=== PATIENT | male | born 1950 | race Caucasian/White ===

== ENCOUNTER 2023-08-27 06:02 | Inpatient (IN) ==
[2023-08-27] MEDS ORDERED: IPRATROPIUM/ALBUTEROL 3 ML AMPUL.NEB NEB ONE ×2 (06:12→07:12)
[2023-08-27] MEDS ORDERED: methylPREDNISolone SOD SUCC 125 MG/2 ML VIAL IV ONE ×2 (06:12→20:56)
[2023-08-27] MEDS ORDERED: ACETAMINOPHEN 325 MG TABLET PO ONE ×2 (06:12→18:52)
[2023-08-27 06:47] LABS: Basophils # (Auto) 0.02 K/mcL (0.00-0.30); Basophils % (Auto) 0.2 % (0.0-2.0); Eosinophils # (Auto) 0.03 K/mcL (0.00-0.70); Eosinophils % (Auto) 0.2 % (0.0-7.0); Hematocrit 40.9 % (40.1-51.0); Hemoglobin 13.8 g/dL (13.7-17.5); Lymphocytes # (Auto) 2.01 K/mcL (1.50-4.80); Lymphocytes % (Auto) 15.1 % (15.5-49.0); Mean Cell Volume 100.7 fL (80.0-100.0); Mean Corpuscular HGB Conc 33.7 g/dL (31.0-36.0); Mean Platelet Volume 9.4 fL (8.8-12.5); Monocytes # (Auto) 0.74 K/mcL (0.10-0.90); Monocytes % (Auto) 5.6 % (1.0-12.0); Neutrophils % (Auto) 78.7 % (38.0-78.0); Platelet Count 279 K/mcL (140-440); RBC 4.06 M/mcL (4.63-6.08); Red Cell Distribution Width 11.7 % (11.5-14.5); WBC 13.3 K/mcL (4.5-11.0)
[2023-08-27] MEDS ORDERED: cefTRIAXone 1 GM VIAL IV ONE (07:13)
[2023-08-27] MEDS ORDERED: DOXYCYCLINE HYCLATE 100 MG TABLET.ORL PO ONE (07:13)
[2023-08-27 07:14] LABS: ALT/SGPT 12 U/L (<40); AST/SGOT 31 U/L (<40); Albumin/Globulin Ratio 1.4 (1.0-2.3); Alkaline Phosphatase 93 U/L (39-117); Bilirubin,Total 0.4 mg/dL (0.1-1.0); Blood Urea Nitrogen 19 mg/dL (8-23); Calcium 9.4 mg/dL (8.6-10.4); Carbon Dioxide 27 mmol/L (22-30); Chloride 92 mmol/L (96-108); Globulin 2.8 gm/dL (2.2-3.7); Glomerular Filtration Rate 74; Glucose 157 mg/dL (70-105)
[2023-08-27] MEDS ORDERED: REMDESIVIR 200 MG in 0.9 % SODIUM CHLORIDE 250 ML IV ONE (13:32)
[2023-08-27 14:10] LABS: C-Reactive Protein 3.45 mg/dL (0.03-0.80)
[2023-08-27] MEDS ORDERED: IPRATROPIUM/ALBUTEROL 3 ML AMPUL.NEB NEB PRN ×2 (20:48→21:33)
[2023-08-27] MEDS ORDERED: 0.9 % SODIUM CHLORIDE 1,000 ML IV SCH (21:00)
[2023-08-27] MEDS ORDERED: SENNOSIDES 1 TABLET PO PRN (21:33)
[2023-08-27] MEDS ORDERED: POLYETHYLENE GLYCOL 3350 17 GM PACKET PO PRN (21:33)
[2023-08-27] MEDS ORDERED: ONDANSETRON 4 MG/2 ML VIAL IV PRN (21:33)
[2023-08-27] MEDS ORDERED: REMDESIVIR 100 MG in 0.9 % SODIUM CHLORIDE 250 ML IV SCH (21:33)
[2023-08-27] MEDS ORDERED: POTASSIUM CHLORIDE 20 MEQ TABLET PO PRN ×2 (21:33)
[2023-08-27] MEDS ORDERED: MAGNESIUM SULFATE 2 GM/50 ML BAG IV PRN (21:33)
[2023-08-27] MEDS ORDERED: ENALAPRILAT 1.25 MG/ML VIAL IV PRN (21:33)
[2023-08-27] MEDS ORDERED: cefTRIAXone 1 GM VIAL IV SCH (21:33)
[2023-08-27] MEDS ORDERED: POTASSIUM CHLORIDE 40 MEQ in DEXTROSE 5% IN WATER 500 ML IV PRN (21:33)
[2023-08-27] MEDS ORDERED: ACETAMINOPHEN 325 MG TABLET PO PRN (21:33)
[2023-08-27] MEDS: IPRATROPIUM/ALBUTEROL 3 ML AMPUL.NEB NEB SCH (22:32)
[2023-08-27] MEDS: methylPREDNISolone SOD SUCC 125 MG/2 ML VIAL IV SCH ×2 (22:32→23:34)
[2023-08-27] MEDS: BUDESONIDE 0.5 MG/2 ML AMPUL.NEB NEB SCH (22:32)
[2023-08-27] MEDS ORDERED: methylPREDNISolone SOD SUCC 125 MG/2 ML VIAL ONE (22:49)
[2023-08-27] MEDS ORDERED: cefTRIAXone 1 GM VIAL ONE (23:13)
[2023-08-27] MEDS: AZITHROMYCIN 500 MG in DEXTROSE 5% IN WATER 250 ML IV SCH (23:36)
[2023-08-27] MEDS: DOCUSATE SODIUM 100 MG CAPSULE PO SCH (23:56)
[2023-08-28] MEDS ORDERED: methylPREDNISolone SOD SUCC 125 MG/2 ML VIAL ONE (05:00)
[2023-08-28] MEDS: methylPREDNISolone SOD SUCC 125 MG/2 ML VIAL IV SCH ×3 (05:04→22:36)
[2023-08-28 06:11] LABS: ALT/SGPT 9 U/L (<40); AST/SGOT 29 U/L (<40); Albumin 3.4 gm/dL (3.2-5.2); Albumin/Globulin Ratio 1.3 (1.0-2.3); Alkaline Phosphatase 71 U/L (39-117); Bilirubin,Direct < 0.2 mg/dL (0-0.3); Bilirubin,Total 0.4 mg/dL (0.1-1.0); Blood Urea Nitrogen 18 mg/dL (8-23); Calcium 9.5 mg/dL (8.6-10.4); Carbon Dioxide 25 mmol/L (22-30); Chloride 93 mmol/L (96-108); Globulin 2.7 gm/dL (2.2-3.7); Glomerular Filtration Rate 84; Glucose 138 mg/dL (70-105); Lactate Dehydrogenase 211 U/L (135-225); Phosphorous 3.2 mg/dL (2.5-4.5); Triglycerides 32 mg/dL (<150); Uric Acid 5.9 mg/dL (2.5-8.0)
[2023-08-28 06:13] LABS: Basophils # (Auto) 0.01 K/mcL (0.00-0.30); Basophils % (Auto) 0.1 % (0.0-2.0); Eosinophils # (Auto) 0 K/mcL (0.00-0.70); Eosinophils % (Auto) 0 % (0.0-7.0); Hematocrit 34.8 % (40.1-51.0); Hemoglobin 11.8 g/dL (13.7-17.5); Lymphocytes # (Auto) 0.59 K/mcL (1.50-4.80); Lymphocytes % (Auto) 3.8 % (15.5-49.0); Mean Cell Volume 102.1 fL (80.0-100.0); Mean Corpuscular HGB Conc 33.9 g/dL (31.0-36.0); Mean Platelet Volume 9.4 fL (8.8-12.5); Monocytes # (Auto) 0.22 K/mcL (0.10-0.90); Monocytes % (Auto) 1.4 % (1.0-12.0); Neutrophils % (Auto) 94.4 % (38.0-78.0); Platelet Count 200 K/mcL (140-440); RBC 3.41 M/mcL (4.63-6.08); Red Cell Distribution Width 11.7 % (11.5-14.5); WBC 15.6 K/mcL (4.5-11.0)
[2023-08-28] MEDS: IPRATROPIUM/ALBUTEROL 3 ML AMPUL.NEB NEB SCH ×2 (07:59→20:59)
[2023-08-28] MEDS: BUDESONIDE 0.5 MG/2 ML AMPUL.NEB NEB SCH (07:59)
[2023-08-28] MEDS ORDERED: 0.9 % SODIUM CHLORIDE 500 ML IV ONE (08:28)
[2023-08-28] MEDS ORDERED: ENOXAPARIN 40 MG/0.4 ML SYRINGE SQ SCH (09:00)
[2023-08-28] MEDS ORDERED: LISINOPRIL 2.5 MG TABLET PO SCH (09:00)
[2023-08-28] MEDS ORDERED: FUROSEMIDE 40 MG TABLET PO SCH (09:00)
[2023-08-28] MEDS ORDERED: METOPROLOL SUCCINATE 25 MG TAB.XL.24H PO SCH (09:00)
[2023-08-28 09:09] LABS: Thyroid Stimulating Hormone 0.48 uIU/mL (0.27-5.01)
[2023-08-28] MEDS: cefTRIAXone 1 GM VIAL IV SCH (09:09)
[2023-08-28] MEDS: THYROID, PORK 60 MG TABLET PO SCH (09:09)
[2023-08-28] MEDS: DOCUSATE SODIUM 100 MG CAPSULE PO SCH ×2 (09:10→21:12)
[2023-08-28 09:32] LABS: Osmolality,Urine 324 mOSM/kg (80-1000); Sodium, Urine Random 10 mmol/L
[2023-08-28] MEDS: SODIUM CHLORIDE 1 GM TABLET PO SCH ×3 (09:52→21:00)
[2023-08-28] MEDS ORDERED: 0.9 % SODIUM CHLORIDE 1,000 ML IV ONE (09:52)
[2023-08-28] MEDS: AZITHROMYCIN 500 MG in DEXTROSE 5% IN WATER 250 ML IV SCH (13:32)
[2023-08-28] MEDS ORDERED: METOPROLOL TARTRATE 5 MG/5 ML VIAL IV ONE ×2 (14:41→17:30)
[2023-08-28] MEDS: METOPROLOL TARTRATE 5 MG/5 ML VIAL IV PRN (15:49)
[2023-08-28] MEDS ORDERED: ENOXAPARIN 40 MG/0.4 ML SYRINGE SQ ONE (16:09)
[2023-08-28] MEDS ORDERED: DILTIAZEM 125 MG in DEXTROSE 5% IN WATER 100 ML IV PRN (17:25)
[2023-08-28] MEDS: METOPROLOL TARTRATE 25 MG TABLET PO SCH (21:00)
[2023-08-28] MEDS: [UNRECOGNIZED DRUG - OTHER] INH SCH (21:00)
[2023-08-29] MEDS: methylPREDNISolone SOD SUCC 125 MG/2 ML VIAL IV SCH (05:48)
[2023-08-29 06:11] LABS: C-Reactive Protein 4.16 mg/dL (0.03-0.80)
[2023-08-29 06:16] LABS: Blood Urea Nitrogen 24 mg/dL (8-23); Calcium 9.6 mg/dL (8.6-10.4); Carbon Dioxide 24 mmol/L (22-30); Chloride 92 mmol/L (96-108); Glomerular Filtration Rate 84; Glucose 127 mg/dL (70-105)
[2023-08-29] MEDS: THYROID, PORK 60 MG TABLET PO SCH (07:35)
[2023-08-29] MEDS: IPRATROPIUM/ALBUTEROL 3 ML AMPUL.NEB NEB SCH (07:51)
[2023-08-29] MEDS ORDERED: ENOXAPARIN 80 MG/0.8 ML SYRINGE SQ ONE (07:58)
[2023-08-29] MEDS ORDERED: 0.9 % SODIUM CHLORIDE 500 ML IV ONE (07:58)
[2023-08-29] MEDS: METOPROLOL TARTRATE 25 MG TABLET PO SCH ×2 (08:25→20:57)
[2023-08-29] MEDS: cefTRIAXone 1 GM VIAL IV SCH (08:25)
[2023-08-29] MEDS: SODIUM CHLORIDE 1 GM TABLET PO SCH ×3 (08:25→20:58)
[2023-08-29] MEDS: DOCUSATE SODIUM 100 MG CAPSULE PO SCH (08:27)
[2023-08-29] MEDS ORDERED: fentaNYL 100 MCG/2 ML VIAL IV ONE (12:04)
[2023-08-29] MEDS: MIDAZOLAM 2 MG/2 ML VIAL IV SCH ×2 (13:04→13:34)
[2023-08-29] MEDS ORDERED: FUROSEMIDE 40 MG/4 ML VIAL IV ONE (13:15)
[2023-08-29] MEDS ORDERED: LOPERAMIDE 2 MG CAPSULE PO ONE (14:14)
[2023-08-29] MEDS ORDERED: LOPERAMIDE 2 MG CAPSULE PO PRN (14:14)
[2023-08-29] MEDS: AZITHROMYCIN 500 MG in DEXTROSE 5% IN WATER 250 ML IV SCH (14:32)
[2023-08-29] MEDS ORDERED: KETOCONAZOLE 200 MG TABLET PO ONE (16:03)
[2023-08-29] MEDS: [UNRECOGNIZED DRUG - OTHER] INH SCH (20:46)
[2023-08-29] MEDS: LACTOBACILLUS 1 CAPSULE PO SCH (20:58)
[2023-08-29] MEDS: ENOXAPARIN 60 MG/0.6 ML SYRINGE SQ SCH (20:58)
[2023-08-29] MEDS ORDERED: methylPREDNISolone SOD SUCC 125 MG/2 ML VIAL IV SCH (21:00)
[2023-08-30] MEDS: METOPROLOL TARTRATE 5 MG/5 ML VIAL IV PRN (04:10)
[2023-08-30 06:11] LABS: Basophils # (Auto) 0.01 K/mcL (0.00-0.30); Basophils % (Auto) 0.1 % (0.0-2.0); Eosinophils # (Auto) 0 K/mcL (0.00-0.70); Eosinophils % (Auto) 0 % (0.0-7.0); Hematocrit 36.3 % (40.1-51.0); Hemoglobin 12.3 g/dL (13.7-17.5); Lymphocytes # (Auto) 0.69 K/mcL (1.50-4.80); Lymphocytes % (Auto) 5.7 % (15.5-49.0); Mean Cell Volume 100.8 fL (80.0-100.0); Mean Corpuscular HGB Conc 33.9 g/dL (31.0-36.0); Mean Platelet Volume 9.3 fL (8.8-12.5); Monocytes # (Auto) 0.38 K/mcL (0.10-0.90); Monocytes % (Auto) 3.1 % (1.0-12.0); Neutrophils % (Auto) 90.9 % (38.0-78.0); Platelet Count 268 K/mcL (140-440); Red Cell Distribution Width 11.8 % (11.5-14.5); WBC 12.2 K/mcL (4.5-11.0)
[2023-08-30 06:26] LABS: C-Reactive Protein 2.11 mg/dL (0.03-0.80)
[2023-08-30 06:36] LABS: Blood Urea Nitrogen 30 mg/dL (8-23); Calcium 9.5 mg/dL (8.6-10.4); Carbon Dioxide 27 mmol/L (22-30); Chloride 93 mmol/L (96-108); Glomerular Filtration Rate 74; Glucose 115 mg/dL (70-105)
[2023-08-30] MEDS ORDERED: AMIODARONE 150 MG in DEXTROSE 5% IN WATER 50 ML IV ONE (07:24)
[2023-08-30] MEDS ORDERED: FUROSEMIDE 40 MG/4 ML VIAL IV ONE (07:25)
[2023-08-30] MEDS ORDERED: AMIODARONE 360 MG in PREMIX 1 BAG IV SCH (07:30)
[2023-08-30] MEDS ORDERED: AMIODARONE 360 MG/200 ML BAG IV ONE ×2 (07:37→14:09)
[2023-08-30] MEDS: THYROID, PORK 60 MG TABLET PO SCH (07:40)
[2023-08-30] MEDS: predniSONE 20 MG TABLET PO SCH ×2 (07:42→16:57)
[2023-08-30] MEDS: METOPROLOL TARTRATE 25 MG TABLET PO SCH ×2 (07:47→21:17)
[2023-08-30] MEDS: cefTRIAXone 1 GM VIAL IV SCH (07:48)
[2023-08-30] MEDS: ENOXAPARIN 60 MG/0.6 ML SYRINGE SQ SCH (07:51)
[2023-08-30] MEDS: SODIUM CHLORIDE 1 GM TABLET PO SCH ×3 (08:04→21:18)
[2023-08-30] MEDS: LACTOBACILLUS 1 CAPSULE PO SCH ×2 (08:05→21:17)
[2023-08-30] MEDS: FLUCONAZOLE 100 MG TABLET PO SCH ×2 (11:14→11:22)
[2023-08-30] MEDS: AMIODARONE 360 MG in PREMIX 1 BAG IV SCH (14:13)
[2023-08-30] MEDS: APIXABAN 5 MG TABLET PO SCH (21:17)
[2023-08-30] MEDS: [UNRECOGNIZED DRUG - OTHER] INH SCH (21:17)
[2023-08-31] MEDS ORDERED: AMIODARONE 360 MG/200 ML BAG IV ONE (01:37)
[2023-08-31] MEDS: AMIODARONE 360 MG in PREMIX 1 BAG IV SCH (02:15)
[2023-08-31 07:16] LABS: ALT/SGPT 21 U/L (<40); AST/SGOT 31 U/L (<40); Albumin 3.2 gm/dL (3.2-5.2); Albumin/Globulin Ratio 1.6 (1.0-2.3); Alkaline Phosphatase 54 U/L (39-117); Bilirubin,Direct < 0.2 mg/dL (0-0.3); Bilirubin,Total 0.2 mg/dL (0.1-1.0); Blood Urea Nitrogen 28 mg/dL (8-23); Calcium 9.1 mg/dL (8.6-10.4); Carbon Dioxide 30 mmol/L (22-30); Chloride 96 mmol/L (96-108); Glomerular Filtration Rate 74; Glucose 118 mg/dL (70-105); Lactate Dehydrogenase 193 U/L (135-225); Phosphorous 2.7 mg/dL (2.5-4.5); Triglycerides 105 mg/dL (<150); Uric Acid 7.9 mg/dL (2.5-8.0)
[2023-08-31] MEDS: THYROID, PORK 60 MG TABLET PO SCH (07:32)
[2023-08-31] MEDS: predniSONE 20 MG TABLET PO SCH (07:33)
[2023-08-31] MEDS: FLUCONAZOLE 100 MG TABLET PO SCH (08:37)
[2023-08-31] MEDS: SODIUM CHLORIDE 1 GM TABLET PO SCH (08:37)
[2023-08-31] MEDS: LACTOBACILLUS 1 CAPSULE PO SCH (08:39)
[2023-08-31] MEDS: APIXABAN 5 MG TABLET PO SCH (08:40)
[2023-08-31] MEDS: METOPROLOL TARTRATE 25 MG TABLET PO SCH (08:40)
[2023-08-31] MEDS: cefTRIAXone 1 GM VIAL IV SCH (08:41)
[2023-08-31] MEDS ORDERED: FUROSEMIDE 20 MG/2 ML VIAL IV ONE (08:47)
== END 2023-08-31 11:35 | disposition home or self-care (01) | DRG 177 ==
LOC: ED 06:02 → MEDSUR 21:24 → ICU 08-28 17:17
PROVIDERS: ADMIT Internal Medicine; ATTEND Internal Medicine